=== PATIENT | female | born 2000 | race Caucasian/White ===

== ENCOUNTER 2023-03-25 23:53 | Emergency (ER) | payer MEDICAID ==
[~2023-03-25] VITALS: Ht 157.5 cm; Wt 39.0 kg
[2023-03-26 00:20] VITALS: BP 116/74; PULSE 69; RESP 18; TEMP 97.9; O2SAT 100
[2023-03-26 03:34] LABS: APPEARANCE,URINE CLEAR (CLEAR); BILIRUBIN,URINE 2+ (NEGATIVE); BLOOD, URINE NEGATIVE (NEGATIVE); COLOR,URINE YELLOW (YELLOW); LEUKOCYTE ESTERASE ,URINE 1+ (NEGATIVE); NITRITE, URINE NEGATIVE (NEGATIVE); PROTEIN,URINE 1+ (NEGATIVE); UGLUCOSE NEGATIVE (NEGATIVE)
[2023-03-26 03:35] LABS: BASOPHILS # (AUTO) 0.1 K/uL (0.00-0.22); BASOPHILS % (AUTO) 1.3 % (0.0-2.0); EOSINOPHILS # (AUTO) 0.1 K/uL (0-0.4); EOSINOPHILS % (AUTO) 1.1 % (0.0-4.0); HEMATOCRIT 40.6 % (36-48); LYMPHOCYTES # (AUTO) 1.8 K/uL (2.5-16.5); LYMPHOCYTES % (AUTO) 38.5 % (20.5-51.1); MEAN CORPUSCULAR HEMOGLOBIN 32 pg (27-31); MEAN CORPUSCULAR HGB CONC 35 g/dL (33-37); MEAN CORPUSCULAR VOLUME 93.8 fL (80-94); MONOCYTES # (AUTO) 0.3 K/uL (0.8-1.0); MONOCYTES % (AUTO) 6.3 % (1.7-9.3); NEUTROPHILS # (AUTO) 2.5 K/uL (1.8-7.7); NEUTROPHILS % (AUTO) 52.8 % (42.2-75.2); PLATELET COUNT (AUTO) 144 K/uL (140-450); RED BLOOD CELL COUNT(AUTO) 4.32 MIL/uL (4.20-5.40); RED CELL DISTRIBUTION WIDTH 15.1 % (11.6-13.7); WHITE BLOOD COUNT (AUTO) 4.7 K/uL (4.8-10.8)
[2023-03-26 03:49] LABS: ICTOTEST POSITIVE (NEGATIVE); RBC,URINE 0-5 /HPF (0-5)
[2023-03-26 03:50] LABS: BACTERIA,URINE >30 (MANY) /HPF (None Seen); MUCUS,URINE 1+ /LPF (None Seen); SQUAMOUS EPITHELIAL CELL,UR 4-10 (MOD) /LPF (0-3 (FEW))
[2023-03-26 03:51] LABS: ALBUMIN 4.5 g/dL (3.4-5.0); ANION GAP 12.3 (8-16); CALCIUM 9.6 mg/dL (8.5-10.1); CARBON DIOXIDE 28.2 mmol/L (21-32); CREATININE 0.8 mg/dL (0.6-1.3); MAGNESIUM 2.2 mg/dL (1.8-2.4); PHOSPHORUS 3.6 mg/dL (2.5-4.9); POTASSIUM 3.5 mmol/L (3.5-5.1); TOTAL PROTEIN, SERUM 7.9 g/dL (6.4-8.2)
[2023-03-26] MEDS ORDERED: SUCR1TAB35 PO ×2 (06:25→06:58)
[2023-03-26 06:40] VITALS: BP 106/66; PULSE 68; RESP 16; O2SAT 96
[2023-03-26 07:26] LABS: FREE T4 (FREE THYROXINE) 0.98 ng/dL (0.76-1.46); THYROID STIMULATING HORMONE 1.9 uIU/mL (0.34-3.74)
== END 2023-03-26 06:40 | disposition home or self-care (01) ==
LOC: MED 23:53
DX: R10.10 Upper abdominal pain, unspecified (principal); M79.89 Other specified soft tissue disorders; R63.4 Abnormal weight loss; R82.4 Acetonuria; Z79.899 Other long term (current) drug therapy
CPT/HCPCS: 36415; 74177; 80053; 81001; 81025; 83690; 83735; 84100; 84439; 84443; 85025; 87086; 99285; Q9967